=== PATIENT | male | born 1975 | race American Indian/Alaskan Native ===

== ENCOUNTER 2017-03-10 18:39 | Emergency (ER) | payer SELFPAY ==
[2017-03-10 20:32] VITALS: BP 120/80
[2017-03-10] MEDS ORDERED: ULTRAM ONE (23:42)
[2017-03-10] MEDS ORDERED: ULTRAM PO ONE (23:45)
[2017-03-10] MEDS ORDERED: XYLOCAINE 1% 20 mL INFILTRATI ONE (23:45)
[2017-03-10] MEDS ORDERED: BOOSTRIX IM ONE (23:46)
[2017-03-10] MEDS ORDERED: TRIPLE ANTIBIOTIC TP ONE (23:46)
[2017-03-10] MEDS ORDERED: XYLOCAINE 2% INFILTRATI ONE ×2 (23:49→23:55)
--- NOTE | 2017-03-11 01:31 | Emergency Department Report ---
ED Laceration HPI - HPI Chief Complaint: Wound/Laceration Stated Complaint: LAC R HAND Time Seen by Provider: 03/11/17 00:02 Occurred When: Today Location: Upper Extremity (3rd finger on right hand) Tetanus Status: Not up to Date Laceration Symptoms: Yes Pain (12/10), No Foreign Body Sensation, No Numbness, No Weakness Other History: This is a 42 y.o. male presents with laceration to 3rd finger on right finger from razor today. Patient states he went to [employer] shop in [place] and moved somethings off desk and a razor sliced his finger. Denies numbness, tingling, SOB, weakness, and chest pain. ED Review of Systems ROS: Stated complaint: LAC R HAND Other details as noted in HPI Constitutional: denies: chills, fever Respiratory: denies: cough, shortness of breath, wheezing Cardiovascular: denies: chest pain, palpitations Gastrointestinal: denies: abdominal pain, nausea, diarrhea Musculoskeletal: denies: back pain, joint swelling, arthralgia Skin: other (laceration to 3rd finger on right hand). denies: rash, lesions, change in color, change in hair/nails, pruritus Neurological: denies: headache, weakness, paresthesias ED Past Medical Hx - Past Medical History Previous Medical History?: No - Surgical History Past Surgical History?: No - Social History Smoking Status: Never Smoker Substance Use Type: None - Medications Home Medications: Home Medications Medication Instructions Recorded Confirmed Last Taken Type Bacitracin Zinc Oint [Antibiotic 28.4 gm TP BID 7 Days #1 oint...g. 03/11/17 Unknown Rx Oint] Ibuprofen 800 mg PO Q6H PRN #20 tablet 03/11/17 Unknown Rx Sulfamethoxazole/Trimethoprim 1 each PO BID 10 Days #20 tablet 03/11/17 Unknown Rx [Bactrim DS TAB] Laceration Physical Exam - Exam General: Vital signs noted. No distress. Alert and acting appropriately. Wound Length (cm): 2 Laceration Location: Upper Extremity (3rd distal phalanx) Laceration Exam: Yes Normal Distal CMS, No Foreign Body, No Exposed Tendon, Vessel, or Nerve, No Tendon Injury ED Course Vital Signs 03/10/17 20:27 Temperature 98.3 F Pulse Rate 66 Respiratory 18 Rate Blood Pressure 120/80 O2 Sat by Pulse 100 Oximetry - Laceration /Wound Repair Right Distal Finger Wound Location: upper extremity Wound Length (cm): 2 Wound's Depth, Shape: superficial, flap Wound Explored: clean Irrigated w/ Saline (ccs): 10 Betadine Prep?: Yes Anesthesia: 1% Lidocaine (2%) Volume Anesthetic (ccs): 2 Wound Repaired With: sutures Suture Size/Type: 5:0, proline Number of Sutures: 10 Layer Closure?: No Sterile Dressing Applied?: Yes Progress: Tolerated well ED Medical Decision Making - Medical Decision Making This is a 42 y.o. male presents with laceration to right 3rd distal phalanx. He was moving something off his friends desk and a razor sliced into finger. He washed hands and came directly to ER. Not up to date on tetanus immunization. Received tdap in ER. On physical assessment, laceration 2 cm, serosangionous discharge, superficial, w/o tendon involvement, and flap Laceration repair with 5.0 proline suture x 10. Applied triple antibiotic ointment and sterile non-adhesive dressing. Instructed to follow up with PCP in 7 days for suture removal. Discharged with bacitracin zinc, bactrim DS and instructed to apply bid for 7 days. Critical care attestation.: If time is entered above; I have spent that time in minutes in the direct care of this critically ill patient, excluding procedure time. ED Disposition Clinical Impression: Laceration of finger Qualifiers: Encounter type: initial encounter Finger: middle finger Damage to nail status: without damage Foreign body presence: without foreign body Laterality: right Qualified Code(s): S61.212A - Laceration without foreign body of right middle finger without damage to nail, initial encounter Disposition: DC-01 TO HOME OR SELFCARE Is pt being admited?: No Does the pt Need Aspirin: No Condition: Stable Instructions: Suture Care (ED), Finger Laceration (ED) Additional Instructions: It is okay to remove dressing in 24 hours. Apply bacitracin zinc ointment to wound twice a day for 7 days. Keep wound clean with soap and water. Follow up with primary care provider or ER in 7 days to have sutures removed. Prescriptions: Bacitracin Zinc Oint [Antibiotic Oint] 28.4 gm TP BID 7 Days #1 oint...g. Ibuprofen 800 mg PO Q6H PRN #20 tablet PRN Reason: Pain Sulfamethoxazole/Trimethoprim [Bactrim DS TAB] 1 each PO BID 10 Days #20 tablet Referrals: LIONEL DELGADO MD [Primary Care Provider] - 3-5 Days [facility] [Outside] - 3-5 Days [facility] [Outside] - 3-5 Days [facility] [Outside] - 3-5 Days Time of Disposition: 01:44 Print Language: CYMRAES
== END 2017-03-11 02:15 | disposition home or self-care (01) ==
LOC: ED 18:39
DX: S61.212A Laceration without foreign body of right middle finger without damage to nail, initial encounter (principal); W26.8XXA Contact with other sharp object(s), not elsewhere classified, initial encounter; Y93.89 Activity, other specified; Y92.89 Other specified places as the place of occurrence of the external cause; Y99.8 Other external cause status
CPT/HCPCS: 90471; 90715; 96372; A6250